=== PATIENT | female | born 1950 | race Caucasian/White ===

== ENCOUNTER 2018-03-01 21:31 | Inpatient (IN) | payer MEDICARE, BC ==
[~2018-03-01] VITALS: Ht 162.6 cm; Wt 56.7 kg
--- NOTE | 2018-03-01 21:40 | NUR ---
Dr. Talbot at bedside for MSE.
--- NOTE | 2018-03-01 22:13 | NUR ---
Called Dominique Pelayo RN for PET eval.
[2018-03-01] MEDS ORDERED: MULT-213 PO (22:14)
[2018-03-01] MEDS ORDERED: LORA0.5T PO (22:14)
[2018-03-01] MEDS ORDERED: ATOR10TA PO (22:14)
[2018-03-01] MEDS ORDERED: OMEG1CAP55 PO (22:14)
[2018-03-01] MEDS ORDERED: cranberry PO (22:14)
[2018-03-01] MEDS ORDERED: PARO20TA7 PO (22:14)
[2018-03-01] MEDS ORDERED: LACT1TAB9 PO (22:14)
[2018-03-01] MEDS ORDERED: OLAN5TAB30 PO (22:14)
[2018-03-01] MEDS ORDERED: PRED20TA PO (22:14)
[2018-03-01] MEDS ORDERED: MELA3TAB PO (22:14)
[2018-03-01] MEDS ORDERED: ASCO500T10 PO (22:14)
[2018-03-01] MEDS ORDERED: CHOL10002 PO (22:14)
[2018-03-01] MEDS ORDERED: QUET50TA PO (22:14)
[2018-03-01] MEDS ORDERED: RIVA20TA PO (22:14)
[2018-03-01] MEDS ORDERED: CYAN10009 PO (22:14)
[2018-03-01] MEDS ORDERED: LISI10TA5 PO (22:14)
[2018-03-01] MEDS ORDERED: LORAZEPAM 1 MG TABLET ONE (22:21)
[2018-03-01] MEDS ORDERED: LORAZEPAM 0.5 MG TABLET PO ONE (22:30)
--- NOTE | 2018-03-01 23:45 | NUR ---
Dominique Pelayo RN arrived to ER, at bedside for psych eval
--- NOTE | 2018-03-02 00:48 | NUR ---
Report given to Oliva WHITTINGTON Medsurg.
[2018-03-02 01:00] VITALS: BP 144/84
[2018-03-02] MEDS: TEMAZEPAM 7.5 MG CAPSULE PO PRN ×2 (01:49→22:17)
[2018-03-02] MEDS ORDERED: MAGNESIUM HYDROXIDE 30 ML LIQUID UDC PO PRN (02:30)
[2018-03-02] MEDS ORDERED: MAG HYDROX/AL HYDROX/SIMETH 30 ML LIQUID UDC PO PRN (02:30)
[2018-03-02 07:30] VITALS: BP 141/74
[2018-03-02] MEDS ORDERED: Medication Not On Formulary EA (Multivitamins W-Minerals (Multivitamin With Minerals) 1 PO SCH (09:00)
[2018-03-02] MEDS ORDERED: Medication Not On Formulary EA (Omega-3 Acid Ethyl Esters (Lovaza) 1 GM) PO SCH (09:00)
[2018-03-02] MEDS ORDERED: OMEGA-3 FATTY ACIDS/FISH OIL CAPSULE PO SCH (09:00)
[2018-03-02] MEDS ORDERED: LACTOBACILLUS REUTERI PO SCH (09:00)
[2018-03-02] MEDS: CHOLECALCIFEROL 1,000 UNIT TABLET PO SCH (10:06)
[2018-03-02] MEDS: ASCORBIC ACID 500 MG TABLET PO SCH ×2 (10:06→16:59)
[2018-03-02] MEDS: LISINOPRIL 10 MG TABLET PO SCH (10:07)
[2018-03-02] MEDS: CYANOCOBALAMIN 1,000 MCG TABLET PO SCH (10:07)
[2018-03-02] MEDS: MULTIVIT, IRON, MIN NO. 8, FA TABLET PO SCH (10:07)
[2018-03-02 15:12] VITALS: BP 147/73
--- NOTE | 2018-03-02 16:25 | NUR ---
Initial Discharge Plan: The patient currently resides in her [facility] [[address] [facility] [address];[[phone]]with her , Kentrell Guallpa [ ]. Per patient, she hopes to return there upon discharge. Motion Designer and other Social Workers will continue to collaborate with interdisciplinary team to ensure safe and proper discharge planning.
[2018-03-02] MEDS: predniSONE 20 MG TABLET PO SCH (17:00)
[2018-03-02] MEDS: RIVAROXABAN 10 MG TABLET PO SCH (17:01)
[2018-03-02 18:32] VITALS: BP 139/71
[2018-03-02] MEDS: ATORVASTATIN 10 MG TABLET PO SCH (20:48)
[2018-03-02] MEDS: risperiDONE 0.5 MG TABLET PO SCH (21:00)
[2018-03-02] MEDS: MIRTAZAPINE 15 MG TABLET PO SCH (21:00)
[2018-03-02 21:51] VITALS: BP 148/79
--- NOTE | 2018-03-02 22:00 | NUR ---
RESTING IN BED, NO ACUTE RESP DISTRESS NOTED., 1;1 SITTER AT BEDSIDE , STILL ON HOLD DUE 03/05/[address] RAMAKRISHNA HEADLEY.
--- NOTE | 2018-03-02 23:20 | NUR ---
Received report from RN. Pt resting in bed, easily arousable. 1:1 sitter at bedside for safety. 72 hour hold noted. No acute distress. Safety precautions in place. Will continue to monitor.
[2018-03-03 07:15] VITALS: BP 147/79
[2018-03-03] MEDS: CHOLECALCIFEROL 1,000 UNIT TABLET PO SCH (09:52)
[2018-03-03] MEDS: ASCORBIC ACID 500 MG TABLET PO SCH ×2 (09:52→17:06)
[2018-03-03] MEDS: CYANOCOBALAMIN 1,000 MCG TABLET PO SCH (09:52)
[2018-03-03] MEDS: MULTIVIT, IRON, MIN NO. 8, FA TABLET PO SCH (09:52)
[2018-03-03] MEDS: predniSONE 20 MG TABLET PO SCH (09:52)
[2018-03-03] MEDS: risperiDONE 0.5 MG TABLET PO SCH ×2 (09:54→20:07)
[2018-03-03 10:24] LABS: BASOPHILS # (AUTO) 0.1 K/uL (0.0-8.0); BASOPHILS % (AUTO) 0.7 % (0.0-2.0); EOSINOPHILS % (AUTO) 0.4 % (0.0-7.0); HEMATOCRIT 41.5 % (31.2-41.9); HEMOGLOBIN 13.9 g/dL (10.9-14.3); LYMPHOCYTES % (AUTO) 18.7 % (20.5-51.5); MEAN CORPUSCULAR HEMOGLOBIN 31.1 uug (24.7-32.8); MEAN CORPUSCULAR HGB CONC 34 g/dL (32.3-35.6); MEAN CORPUSCULAR VOLUME 92.7 fL (75.5-95.3); MONOCYTES # (AUTO) 0.4 K/uL (2.0-10.0); MONOCYTES % (AUTO) 3.5 % (0.0-11.0); NEUTROPHILS # (AUTO) 8.2 K/uL (1.8-8.9); NEUTROPHILS % (AUTO) 76.7 % (38.5-71.5); PLATELET COUNT (AUTO) 229 K/uL (179-408); RED BLOOD CELL COUNT(AUTO) 4.47 MIL/uL (3.63-4.92); WHITE BLOOD COUNT (AUTO) 10.7 K/uL (3.8-11.8)
[2018-03-03 10:38] LABS: CREATININE 1.1 mg/dL (0.6-1.3); POTASSIUM 2.9 mmol/L (3.5-5.1)
[2018-03-03] MEDS: FLUVOXAMINE MALEATE 25 MG TABLET PO SCH ×3 (11:00→17:05)
[2018-03-03] MEDS: LISINOPRIL 10 MG TABLET PO SCH (11:01)
[2018-03-03] MEDS: POTASSIUM CHLORIDE 10 MEQ TAB.PRT.SR PO SCH ×2 (13:03→17:05)
[2018-03-03] MEDS: LORAZEPAM 1 MG TABLET PO PRN ×2 (13:06→17:05)
--- NOTE | 2018-03-03 13:29 | NUR ---
Gave phone report to NELSY Recinos in MHU. Patient transferred on wheel chair, accompanied by NELSY England and . All belongings transferred with patient. Patient in stable condition.
[2018-03-03 16:00] VITALS: BP 150/73
--- NOTE | 2018-03-03 17:04 | NUR ---
Social work note: structural ironworker was sitting in office accompanied by other social human services assistants, Mary Jo, when there were two loud banging sounds coming from hallway of U. Both social workers got up to see what it was just as patient came walking into office and sat down in a chair. Patient stated her name was "Lori De Leon", which later was confirmed to be her [id number]'s name. Patient stated that she made banging noises against MHU entrance door with her plastic cup that she was holding in her hand. Patient appeared to have injured a finger on her right hand as there was a tiny amount of blood. When scratch was acknowledged, patient stated "I'm fine" and that she was "scared" being in MHU as she was just transferred from [facility]. chairman president and chief executive officer showed up to social work office to escort patient out of room. Patient went to doorway of U again and stated "I want to talk to him [referring to security manager". airfield defence guard was able to calm patient down. Patient then approached social human services assistants requesting to call her , Steve [[phone]]. Phone call was unsuccessful so patient left voicemail. Patient remained extremely anxious and continued to pace halls. structural ironworker was able to calm patient and patient sat in chair in the hallway of U. Patient perseverated on fear of "getting a shot". structural ironworker continued to wait with patient until calm.
[2018-03-03] MEDS: RIVAROXABAN 10 MG TABLET PO SCH (17:06)
[2018-03-03 20:00] VITALS: BP 132/65
[2018-03-03] MEDS: MIRTAZAPINE 15 MG TABLET PO SCH (20:07)
[2018-03-03] MEDS: ATORVASTATIN 10 MG TABLET PO SCH (20:07)
[2018-03-04 07:30] VITALS: BP 131/81
[2018-03-04 07:45] LABS: CREATININE 0.9 mg/dL (0.6-1.3); POTASSIUM 4.3 mmol/L (3.5-5.1)
[2018-03-04] MEDS: MULTIVIT, IRON, MIN NO. 8, FA TABLET PO SCH (08:34)
[2018-03-04] MEDS: FLUVOXAMINE MALEATE 25 MG TABLET PO SCH ×3 (08:34→17:34)
[2018-03-04] MEDS: ASCORBIC ACID 500 MG TABLET PO SCH ×2 (08:34→17:38)
[2018-03-04] MEDS: risperiDONE 0.5 MG TABLET PO SCH ×2 (08:34→20:06)
[2018-03-04] MEDS: predniSONE 20 MG TABLET PO SCH (08:34)
[2018-03-04] MEDS: CYANOCOBALAMIN 1,000 MCG TABLET PO SCH (08:34)
[2018-03-04] MEDS: CHOLECALCIFEROL 1,000 UNIT TABLET PO SCH (08:34)
[2018-03-04] MEDS: LISINOPRIL 10 MG TABLET PO SCH (08:35)
--- NOTE | 2018-03-04 13:20 | NUR ---
GROUP NOTE: Patients were asked to discuss their thoughts on what they would change in their lives in order to invoke empowerment and explore coping strategies for things they cannot change. Subjective: "I would want to be with my grandchildren all the time." Objective: Patient initially refused to attend the group today. Patient arrived to group 5 minutes late. Patient appeared to sit and listen to other group members in the group and required prompting to participate. Patient left the group x3 to use the restroom, take a shower, or change her shirt. Assessment: Patient appeared somewhat restless while the group was taking place. Patient did not seem to sit in the [place] for very long before stating she needed to use the restroom, take a shower, or change her clothes. Patient did require some prompting to participate in the group, but did respond appropriately to questions asked. Patient was unable to discuss any coping strategies that she has. Plan: SW will continue to encourage group attendance as scheduled. SW will continue to provide encouragement and support in helping patient explore options of coping skills.
[2018-03-04 16:00] VITALS: BP 98/63
[2018-03-04] MEDS: RIVAROXABAN 10 MG TABLET PO SCH (17:38)
[2018-03-04] MEDS: MIRTAZAPINE 15 MG TABLET PO SCH (20:06)
[2018-03-04] MEDS: ATORVASTATIN 10 MG TABLET PO SCH (20:06)
[2018-03-04 20:15] VITALS: BP 130/70
[2018-03-04] MEDS: TEMAZEPAM 7.5 MG CAPSULE PO PRN (23:47)
[2018-03-05] MEDS: LORAZEPAM 1 MG TABLET PO PRN (06:20)
[2018-03-05 07:30] VITALS: BP 133/70
[2018-03-05] MEDS: ASCORBIC ACID 500 MG TABLET PO SCH ×2 (08:31→17:23)
[2018-03-05] MEDS: LISINOPRIL 10 MG TABLET PO SCH (08:32)
[2018-03-05] MEDS: CYANOCOBALAMIN 1,000 MCG TABLET PO SCH (08:32)
[2018-03-05] MEDS: risperiDONE 0.5 MG TABLET PO SCH ×2 (08:34→20:30)
[2018-03-05] MEDS: MULTIVIT, IRON, MIN NO. 8, FA TABLET PO SCH (08:34)
[2018-03-05] MEDS: predniSONE 20 MG TABLET PO SCH (08:34)
[2018-03-05] MEDS: FLUVOXAMINE MALEATE 25 MG TABLET PO SCH ×3 (08:34→17:23)
[2018-03-05] MEDS: CHOLECALCIFEROL 1,000 UNIT TABLET PO SCH (08:34)
[2018-03-05 16:12] VITALS: BP 118/65
[2018-03-05] MEDS: RIVAROXABAN 10 MG TABLET PO SCH (17:25)
[2018-03-05] MEDS: FLUVOXAMINE MALEATE 50 MG TABLET PO SCH (20:30)
[2018-03-05] MEDS: MIRTAZAPINE 15 MG TABLET PO SCH (20:30)
[2018-03-05] MEDS: ATORVASTATIN 10 MG TABLET PO SCH (20:36)
[2018-03-05] MEDS: ACETAMINOPHEN 325 MG TABLET PO PRN (20:38)
[2018-03-05 21:03] VITALS: BP 116/58
--- NOTE | 2018-03-06 06:52 | NUR ---
Received Pt lying in bed awake, A+Ox3. Presents with blunted and constricted affect and poor eye contact. Pt states she has been increasingly "depressed over the last year, mostly just trying to get through cancer." Denies SI and denies AH/VH, but appears internally preoccupied and paranoid. Verbally contracts for safety, encouraged to seek staff if feeling self-injurious or suicidal, Pt agreed. VS stable, denies pain, in no acute physical distress.
[2018-03-06 07:30] VITALS: BP 134/60
[2018-03-06] MEDS: FLUVOXAMINE MALEATE 25 MG TABLET PO SCH ×2 (08:30→16:39)
[2018-03-06] MEDS: predniSONE 20 MG TABLET PO SCH (08:30)
[2018-03-06] MEDS: LISINOPRIL 10 MG TABLET PO SCH (08:32)
[2018-03-06] MEDS: risperiDONE 0.5 MG TABLET PO SCH ×2 (08:32→21:00)
[2018-03-06] MEDS: MULTIVIT, IRON, MIN NO. 8, FA TABLET PO SCH (08:33)
[2018-03-06] MEDS: CYANOCOBALAMIN 1,000 MCG TABLET PO SCH (08:33)
[2018-03-06] MEDS: ASCORBIC ACID 500 MG TABLET PO SCH ×2 (08:33→16:39)
[2018-03-06] MEDS: CHOLECALCIFEROL 1,000 UNIT TABLET PO SCH (08:34)
[2018-03-06] MEDS ORDERED: BISACODYL 10 MG SUPP.RECT RC PRN (10:45)
[2018-03-06] MEDS ORDERED: MIRALAX 17 GM POWD.PACK PO PRN (10:45)
[2018-03-06 15:00] VITALS: BP 129/73
--- NOTE | 2018-03-06 15:16 | NUR ---
Firearms Report: feed in worker completed and submitted a [employer] firearms report for a 5250 GD certification.
[2018-03-06] MEDS: RIVAROXABAN 10 MG TABLET PO SCH (16:40)
--- NOTE | 2018-03-06 17:25 | NUR ---
received patient awake on bed, Alert Oriented x 3, patient isolates her self and did not rajwinder the group activity , constricted affect with poor eye contact, patient compliant with care and medication, encourage to join group activity, patient denies of pain and other discomfort
[2018-03-06 20:00] VITALS: BP 161/78
[2018-03-06] MEDS: FLUVOXAMINE MALEATE 50 MG TABLET PO SCH (21:00)
[2018-03-06] MEDS: ATORVASTATIN 10 MG TABLET PO SCH (21:00)
[2018-03-06] MEDS: MIRTAZAPINE 15 MG TABLET PO SCH (21:00)
--- NOTE | 2018-03-06 21:23 | NUR ---
Refusing PM medications. Offered x 3, explained risks and benefits. Continued to refuse. Safety maintained. Will continue to monitor.
[2018-03-06 21:31] VITALS: BP 151/72
--- NOTE | 2018-03-06 21:48 | NUR ---
Requested to take PM meds but upon entering, patient refused. Offered x 3, explained risks and benefits but pt continued to refuse. Safety maintained. Will continue to monitor.
--- NOTE | 2018-03-07 06:47 | NUR ---
Received pt at beginning of shift, AAO x 3-4 with guarded behavior, isolative and flat affect. No complaints of pain or discomfort throughout shift. Patient noted with accusatory, paranoid, restless, agitated behavior. Refused all PM meds, despite explanation of risks and benefits. Offered x 3. Verbalizing that she "is not sick" and that "she is faking it all". Restless behavior all night, frequently waking her roommate by shaking the bed and shaking the patient. Manipulative behavior noted as well. Frequent attempts at redirection made with minimal success. In denial about condition with poor insight. Continues paranoid and accusatory behavior towards nursing staff. Safety maintained. Fall precautions implemented. Will endorse accordingly to next shift.
[2018-03-07] MEDS: LORAZEPAM 1 MG TABLET PO PRN (07:39)
[2018-03-07] MEDS: ACETAMINOPHEN 325 MG TABLET PO PRN (07:40)
[2018-03-07 08:12] VITALS: BP 168/82
[2018-03-07] MEDS: risperiDONE 0.5 MG TABLET PO SCH ×2 (08:18→21:48)
[2018-03-07] MEDS: FLUVOXAMINE MALEATE 25 MG TABLET PO SCH ×2 (08:18→17:07)
[2018-03-07] MEDS: CYANOCOBALAMIN 1,000 MCG TABLET PO SCH (08:19)
[2018-03-07] MEDS: predniSONE 20 MG TABLET PO SCH (08:19)
[2018-03-07] MEDS: ASCORBIC ACID 500 MG TABLET PO SCH ×2 (08:19→17:08)
[2018-03-07] MEDS: MULTIVIT, IRON, MIN NO. 8, FA TABLET PO SCH (08:19)
[2018-03-07] MEDS: CHOLECALCIFEROL 1,000 UNIT TABLET PO SCH (08:19)
[2018-03-07] MEDS: LISINOPRIL 10 MG TABLET PO SCH ×2 (08:20→17:10)
[2018-03-07 16:16] VITALS: BP 112/64
[2018-03-07] MEDS: LORAZEPAM 0.5 MG TABLET PO PRN (17:07)
[2018-03-07] MEDS: RIVAROXABAN 10 MG TABLET PO SCH (17:17)
[2018-03-07 20:00] VITALS: BP 104/51
[2018-03-07] MEDS: FLUVOXAMINE MALEATE 50 MG TABLET PO SCH (21:49)
[2018-03-07] MEDS: ATORVASTATIN 10 MG TABLET PO SCH (21:49)
[2018-03-07] MEDS: MIRTAZAPINE 15 MG TABLET PO SCH (21:49)
[2018-03-07] MEDS: TEMAZEPAM 7.5 MG CAPSULE PO PRN (21:49)
--- NOTE | 2018-03-08 00:53 | NUR ---
Lying in bed given c/o insomnia given prn Restoril compliant with hs Meds. resting comfortably at this time.
--- NOTE | 2018-03-08 06:51 | NUR ---
Eyes closed rep even and unlab remains resting comfortably. Slept 8.0 hr s during the shift.
[2018-03-08 07:30] VITALS: BP 108/49
[2018-03-08] MEDS: LISINOPRIL 10 MG TABLET PO SCH ×3 (08:21→16:46)
[2018-03-08] MEDS: risperiDONE 0.5 MG TABLET PO SCH ×2 (08:21→20:20)
[2018-03-08] MEDS: ASCORBIC ACID 500 MG TABLET PO SCH ×2 (08:21→16:45)
[2018-03-08] MEDS: predniSONE 20 MG TABLET PO SCH (08:22)
[2018-03-08] MEDS: CYANOCOBALAMIN 1,000 MCG TABLET PO SCH (08:22)
[2018-03-08] MEDS: CHOLECALCIFEROL 1,000 UNIT TABLET PO SCH (08:22)
[2018-03-08] MEDS: MULTIVIT, IRON, MIN NO. 8, FA TABLET PO SCH (08:22)
[2018-03-08] MEDS: FLUVOXAMINE MALEATE 25 MG TABLET PO SCH ×2 (08:22→16:47)
[2018-03-08 16:00] VITALS: BP 139/79
[2018-03-08] MEDS: RIVAROXABAN 10 MG TABLET PO SCH (16:45)
[2018-03-08 20:05] VITALS: BP 130/67
[2018-03-08] MEDS: ATORVASTATIN 10 MG TABLET PO SCH (20:19)
[2018-03-08] MEDS: MIRTAZAPINE 15 MG TABLET PO SCH (20:19)
[2018-03-08] MEDS: FLUVOXAMINE MALEATE 50 MG TABLET PO SCH (20:19)
[2018-03-09] MEDS: LORAZEPAM 0.5 MG TABLET PO PRN ×2 (07:52→16:54)
[2018-03-09] MEDS: ASCORBIC ACID 500 MG TABLET PO SCH ×2 (08:11→16:54)
[2018-03-09] MEDS: risperiDONE 0.5 MG TABLET PO SCH (08:11)
[2018-03-09] MEDS: FLUVOXAMINE MALEATE 25 MG TABLET PO SCH ×2 (08:11→16:54)
[2018-03-09] MEDS: CYANOCOBALAMIN 1,000 MCG TABLET PO SCH (08:11)
[2018-03-09] MEDS: MULTIVIT, IRON, MIN NO. 8, FA TABLET PO SCH (08:11)
[2018-03-09] MEDS: CHOLECALCIFEROL 1,000 UNIT TABLET PO SCH (08:12)
[2018-03-09] MEDS: predniSONE 20 MG TABLET PO SCH (08:12)
[2018-03-09] MEDS: LISINOPRIL 10 MG TABLET PO SCH (08:12)
[2018-03-09] MEDS: LISINOPRIL 20 MG TABLET PO SCH ×2 (08:39→16:59)
--- NOTE | 2018-03-09 08:40 | NUR ---
GPS: Nursing Notes: Lisinopril PO: Lisinopril 20mg PO already given this AM, informed pharmacist whom changed the formulary, continue to monitor patient, continue with treatment plan.
[2018-03-09] MEDS: RIVAROXABAN 10 MG TABLET PO SCH (17:00)
[2018-03-09 17:12] VITALS: BP 115/62
[2018-03-09] MEDS: ATORVASTATIN 10 MG TABLET PO SCH (20:04)
[2018-03-09] MEDS: FLUVOXAMINE MALEATE 50 MG TABLET PO SCH (20:05)
[2018-03-09] MEDS: MIRTAZAPINE 15 MG TABLET PO SCH (20:05)
[2018-03-09] MEDS: risperiDONE 1 MG TABLET PO SCH (20:05)
[2018-03-09 20:22] VITALS: BP 121/69
[2018-03-10 07:30] VITALS: BP 117/54
[2018-03-10] MEDS: MULTIVIT, IRON, MIN NO. 8, FA TABLET PO SCH (08:44)
[2018-03-10] MEDS: FLUVOXAMINE MALEATE 50 MG TABLET PO SCH ×2 (08:44→20:50)
[2018-03-10] MEDS: CYANOCOBALAMIN 1,000 MCG TABLET PO SCH (08:44)
[2018-03-10] MEDS: LISINOPRIL 20 MG TABLET PO SCH ×2 (08:45→17:36)
[2018-03-10] MEDS: CHOLECALCIFEROL 1,000 UNIT TABLET PO SCH (08:45)
[2018-03-10] MEDS: ASCORBIC ACID 500 MG TABLET PO SCH ×2 (08:46→17:35)
[2018-03-10] MEDS: predniSONE 20 MG TABLET PO SCH (08:46)
[2018-03-10] MEDS: risperiDONE 1 MG TABLET PO SCH ×2 (08:46→20:50)
[2018-03-10] MEDS: FLUVOXAMINE MALEATE 25 MG TABLET PO SCH (12:54)
[2018-03-10 16:00] VITALS: BP 136/68
[2018-03-10] MEDS: LORAZEPAM 0.5 MG TABLET PO PRN (17:35)
[2018-03-10] MEDS: RIVAROXABAN 10 MG TABLET PO SCH (17:36)
[2018-03-10 20:15] VITALS: BP 107/62
[2018-03-10] MEDS: MIRTAZAPINE 15 MG TABLET PO SCH (20:50)
[2018-03-10] MEDS: ATORVASTATIN 10 MG TABLET PO SCH (20:50)
[2018-03-11 07:30] VITALS: BP 90/50
[2018-03-11 07:31] LABS: BASOPHILS % (AUTO) 0.5 % (0.0-2.0); EOSINOPHILS % (AUTO) 0.4 % (0.0-7.0); HEMATOCRIT 35.8 % (31.2-41.9); HEMOGLOBIN 12.4 g/dL (10.9-14.3); LYMPHOCYTES # (AUTO) 2.4 K/uL (20.0-40.0); LYMPHOCYTES % (AUTO) 29.1 % (20.5-51.5); MEAN CORPUSCULAR HEMOGLOBIN 31.4 uug (24.7-32.8); MEAN CORPUSCULAR HGB CONC 35 g/dL (32.3-35.6); MEAN CORPUSCULAR VOLUME 90.7 fL (75.5-95.3); MONOCYTES # (AUTO) 0.6 K/uL (2.0-10.0); MONOCYTES % (AUTO) 7.5 % (0.0-11.0); NEUTROPHILS # (AUTO) 5.1 K/uL (1.8-8.9); NEUTROPHILS % (AUTO) 62.5 % (38.5-71.5); PLATELET COUNT (AUTO) 183 K/uL (179-408); RED BLOOD CELL COUNT(AUTO) 3.94 MIL/uL (3.63-4.92); WHITE BLOOD COUNT (AUTO) 8.1 K/uL (3.8-11.8)
[2018-03-11] MEDS: LISINOPRIL 20 MG TABLET PO SCH ×2 (09:00→16:59)
[2018-03-11] MEDS: FLUVOXAMINE MALEATE 50 MG TABLET PO SCH ×2 (09:34→21:00)
[2018-03-11] MEDS: predniSONE 20 MG TABLET PO SCH (09:34)
[2018-03-11] MEDS: CYANOCOBALAMIN 1,000 MCG TABLET PO SCH (09:34)
[2018-03-11] MEDS: ASCORBIC ACID 500 MG TABLET PO SCH ×2 (09:34→17:00)
[2018-03-11] MEDS: MULTIVIT, IRON, MIN NO. 8, FA TABLET PO SCH (09:34)
[2018-03-11] MEDS: CHOLECALCIFEROL 1,000 UNIT TABLET PO SCH (09:35)
[2018-03-11] MEDS: risperiDONE 1 MG TABLET PO SCH ×2 (09:51→21:00)
--- NOTE | 2018-03-11 12:36 | NUR ---
Activity group note: Patients were asked to answer the question of "What is one thing you would change about yourself and why? Subjective: "No, I don't think so" Objective: Patient was laying in bed when social professionals approached bedside to ask for group participation. Patient appeared with flat affect and made no eye contact with social professionals. Assessment: Patient needs encouragement to participate in group and with peers. Plan: Encourage group attendance as scheduled. bridge worker continue to provide opportunities for group participation and peer interaction.
[2018-03-11] MEDS: FLUVOXAMINE MALEATE 25 MG TABLET PO SCH (12:47)
[2018-03-11 16:00] VITALS: BP 106/63
[2018-03-11] MEDS: RIVAROXABAN 10 MG TABLET PO SCH (17:01)
[2018-03-11 20:11] VITALS: BP 126/66
[2018-03-11] MEDS: ATORVASTATIN 10 MG TABLET PO SCH (21:00)
[2018-03-11] MEDS: MIRTAZAPINE 15 MG TABLET PO SCH (21:00)
[2018-03-11] MEDS: CLONAZEPAM 0.5 MG TABLET PO SCH (21:00)
[2018-03-12 07:30] VITALS: BP 139/70
[2018-03-12] MEDS: CHOLECALCIFEROL 1,000 UNIT TABLET PO SCH (09:31)
[2018-03-12] MEDS: predniSONE 20 MG TABLET PO SCH (09:31)
[2018-03-12] MEDS: CLONAZEPAM 0.5 MG TABLET PO SCH ×2 (09:31→21:15)
[2018-03-12] MEDS: MULTIVIT, IRON, MIN NO. 8, FA TABLET PO SCH (09:32)
[2018-03-12] MEDS: LISINOPRIL 20 MG TABLET PO SCH ×2 (09:32→17:00)
[2018-03-12] MEDS: FLUVOXAMINE MALEATE 50 MG TABLET PO SCH ×2 (09:32→21:16)
[2018-03-12] MEDS: ASCORBIC ACID 500 MG TABLET PO SCH ×2 (09:32→17:13)
[2018-03-12] MEDS: risperiDONE 1 MG TABLET PO SCH ×2 (09:32→21:14)
[2018-03-12] MEDS: CYANOCOBALAMIN 1,000 MCG TABLET PO SCH (09:32)
--- NOTE | 2018-03-12 12:05 | NUR ---
Gps/Oil Process Stillman- Patient wet, not with urine but with water from w/c WINE CONSULTANT observed patient pouring water on her w/ face towel. When asked patient if she is ok, claimed " i am fine, just dont bother me, instructed the need to change her shirt and alison shin, claimed she does not need any help right now, offered prn ativan, refused. in , visiting was informed of patient's behavior.
[2018-03-12 16:00] VITALS: BP 96/47
[2018-03-12] MEDS: RIVAROXABAN 10 MG TABLET PO SCH (17:19)
--- NOTE | 2018-03-12 17:44 | NUR ---
Gps/Obstetrical Anesthesiologist- Compliant with routine pm. meds. in the room visiting. Had a nice nap this pm. Less anxious, interacting fairly well with staff.
[2018-03-12 20:00] VITALS: BP 91/53
[2018-03-12] MEDS: MIRTAZAPINE 15 MG TABLET PO SCH (21:16)
[2018-03-12] MEDS: ATORVASTATIN 10 MG TABLET PO SCH (21:16)
[2018-03-13 07:30] VITALS: BP 148/67
[2018-03-13] MEDS: ASCORBIC ACID 500 MG TABLET PO SCH ×2 (08:52→17:16)
[2018-03-13] MEDS: predniSONE 20 MG TABLET PO SCH (08:52)
[2018-03-13] MEDS: MULTIVIT, IRON, MIN NO. 8, FA TABLET PO SCH (08:53)
[2018-03-13] MEDS: CHOLECALCIFEROL 1,000 UNIT TABLET PO SCH (08:53)
[2018-03-13] MEDS: CYANOCOBALAMIN 1,000 MCG TABLET PO SCH (08:53)
[2018-03-13] MEDS: FLUVOXAMINE MALEATE 50 MG TABLET PO SCH (08:53)
[2018-03-13] MEDS: risperiDONE 1 MG TABLET PO SCH (08:53)
[2018-03-13] MEDS: LISINOPRIL 20 MG TABLET PO SCH ×2 (08:53→16:13)
[2018-03-13] MEDS: CLONAZEPAM 0.5 MG TABLET PO SCH ×3 (08:54→21:59)
--- NOTE | 2018-03-13 14:49 | NUR ---
Gps/Emissions Testing Technician- Came to the Nurses station verbalized that she's done faking, when asked what does she meant by faking, she claimed" I feel sorry for my family, i did this to everyone, they are miserable, dont let my comes to see me anymore", she also verbalized feelings of being scared, when asked why she's scared, she claimed " you will broadcast to the world and it wont be secret anymore." Offered prn ativan, appeared to be anxious, claimed ativan wont help her , encouraged to attend her group therapy, stay with the group, pt. refused. Continue to monitor behavior, safety reviewed emphasized, monitored needs.
--- NOTE | 2018-03-13 15:22 | NUR ---
Discharge Planning: DANE Rondon spoke with pt. and her , Kentrell [[phone]] on 03/09/18 regarding what supportive services they would be interested in. Per pt. and they would like to be referred to a psychiatrist near their home because they previously had difficulty finding mental health services in their area. DANE Rondon on 03/13/18 put together a list of Psychiatrists in the [facility] for post discharge patient care.
--- NOTE | 2018-03-13 15:42 | NUR ---
Discharge Planning: painting trades worker has conversation with patient about outpatient resources that could be beneficial to patient upon treatment. Patient appeared to be anxious as she was scribbling in notebook and would not make eye contact during conversation. Patient made bizarre statements that she was "never going to go home" and that "nothing will help this [referring to herself]". Patient fabio stated that she "destroyed" her "loving family". painting trades worker attempted to offer supportive counseling, but patient refused to participate. painting trades worker offered to come back at a later time with resources that patient could look at and choose from. Patient agreed. Per conversation with patient, it appears patient may benefit from an IOP [Intensive Outpatient Program]. painting trades worker researched IOPs in the [facility] and found [facility] [[address] [place] [address], [address], [place] [address]; [phone]]. painting trades worker called and left a voicemail requesting a return phone call. painting trades worker awaiting call back.
[2018-03-13 16:48] VITALS: BP 101/57
[2018-03-13] MEDS: RIVAROXABAN 10 MG TABLET PO SCH (17:17)
--- NOTE | 2018-03-13 17:36 | NUR ---
Gps/Mobile Manager- Patient refusing routine pm meds., at the bedside, encouraged patient to take her routine meds. , appeared to be anxious, guarded, refusing to talk.
[2018-03-13 20:37] VITALS: BP 131/68
[2018-03-13] MEDS: risperiDONE 1 MG/ML UDC PO SCH ×2 (21:00→21:59)
[2018-03-13] MEDS: ATORVASTATIN 10 MG TABLET PO SCH ×2 (21:00→21:59)
[2018-03-13] MEDS: MIRTAZAPINE 15 MG TABLET PO SCH ×2 (21:00→21:58)
--- NOTE | 2018-03-13 22:41 | NUR ---
RECEIVED PATIENT IN BED.APPEARS WITHDRAWN,ISOLATIVE ,AND GUARDED.DOES NOT INTERACT EVEN WHEN ENGAGED.REFUSED ALL MEDS EVEN AFTER 3 ATTEMPTS.ONLY SAID 'I WANT TO GO'.WILL CONTINUE WITH MONITORING.
[2018-03-14] MEDS: TEMAZEPAM 7.5 MG CAPSULE PO PRN (01:05)
--- NOTE | 2018-03-14 06:58 | NUR ---
SLEPT APPROX.7;30HRS.ALLOWED STAFF TO GIVE HER A SHOWER.
[2018-03-14 07:30] VITALS: BP 126/62
[2018-03-14] MEDS: CYANOCOBALAMIN 1,000 MCG TABLET PO SCH (09:02)
[2018-03-14] MEDS: MULTIVIT, IRON, MIN NO. 8, FA TABLET PO SCH (09:02)
[2018-03-14] MEDS: CHOLECALCIFEROL 1,000 UNIT TABLET PO SCH (09:02)
[2018-03-14] MEDS: ASCORBIC ACID 500 MG TABLET PO SCH ×2 (09:02→17:58)
[2018-03-14] MEDS: predniSONE 20 MG TABLET PO SCH (09:02)
[2018-03-14] MEDS: FLUVOXAMINE MALEATE 50 MG TABLET PO SCH ×3 (09:02→17:59)
[2018-03-14] MEDS: LISINOPRIL 20 MG TABLET PO SCH ×2 (09:03→17:00)
[2018-03-14] MEDS: risperiDONE 1 MG/ML UDC PO SCH ×2 (09:05→21:18)
[2018-03-14] MEDS: CLONAZEPAM 0.5 MG TABLET PO SCH ×3 (09:05→21:16)
[2018-03-14 16:00] VITALS: BP 91/51
[2018-03-14] MEDS: RIVAROXABAN 10 MG TABLET PO SCH (18:01)
--- NOTE | 2018-03-14 18:35 | NUR ---
PT WAS LYING IN BED DECIDED TO GET UP AND TURN ON THE LIGHT IN THE ROOM. ON HER WAY BACK TO BED SHE SAYS SHE BECAME DIZZY AND LOST HER BALANCE. WENT DOWN ON HER BUT ON TOP OF HER SHOES IN HER ROOM. WITNESSED BY SITTER OF PT IN BED SAME ROOM BED A. STAFF INTO ROOM TO HELP HER BACK TO BED SHE SAYS SHE HAS MINIMAL PAIN ON HER BUTTOCK 4/10. SHE IS ABLE TO WALK AND STAND NO VISIBLE BRUISING OR INJURY NOTED. NOTIFIED INCIDENT REPORT WRITTEN. NOW IN BE BED ALARM ON INSTURCT HER TO CALL FOR ASSIST WHEN GETTING OUT OF BED. FALL REASSESSMENT DONE
[2018-03-14 20:00] VITALS: BP 94/55
[2018-03-14] MEDS: ATORVASTATIN 10 MG TABLET PO SCH (21:16)
[2018-03-14] MEDS: MIRTAZAPINE 15 MG TABLET PO SCH (21:16)
--- NOTE | 2018-03-14 21:30 | NUR ---
XRAY OF THE PELVIS DONE WITH NORMAL RESULT
--- NOTE | 2018-03-15 06:40 | NUR ---
PATIENT SLEEPING INTERMITTENTLY,. NO C/O PAIN OR DISCOMFORT DURING THE SHIFT. SLEPT FOR 9.30 HRS.
[2018-03-15 07:30] VITALS: BP 111/62
[2018-03-15] MEDS: ASCORBIC ACID 500 MG TABLET PO SCH ×2 (08:35→17:38)
[2018-03-15] MEDS: LISINOPRIL 20 MG TABLET PO SCH ×2 (08:35→17:00)
[2018-03-15] MEDS: CYANOCOBALAMIN 1,000 MCG TABLET PO SCH (08:35)
[2018-03-15] MEDS: CHOLECALCIFEROL 1,000 UNIT TABLET PO SCH (08:36)
[2018-03-15] MEDS: predniSONE 20 MG TABLET PO SCH (08:36)
[2018-03-15] MEDS: FLUVOXAMINE MALEATE 50 MG TABLET PO SCH ×3 (08:36→17:38)
[2018-03-15] MEDS: MULTIVIT, IRON, MIN NO. 8, FA TABLET PO SCH (08:36)
[2018-03-15] MEDS: risperiDONE 1 MG/ML UDC PO SCH ×2 (08:40→21:39)
[2018-03-15] MEDS: CLONAZEPAM 0.5 MG TABLET PO SCH ×3 (08:40→21:03)
[2018-03-15 08:56] VITALS: BP 114/64
[2018-03-15 08:57] VITALS: BP 122/62
[2018-03-15 08:58] VITALS: BP 99/57
--- NOTE | 2018-03-15 09:15 | NUR ---
Gps/Flaring Machine Operator- Hesitant to take her routine am meds. reviewed with patient, claimed she does not want to take anymore meds. needed prompting and encouragement. Appeared to be anxious, encouraged verbalizations of her feelings. B/P 114/64 HR 89 02 sat 96%- lying, 122/62 HR 95 sitting, 99/57 HR 108 standing .Safety reviewed and emphasized. Denies dizziness
[2018-03-15 15:23] VITALS: BP 109/63
[2018-03-15] MEDS: RIVAROXABAN 10 MG TABLET PO SCH (17:43)
[2018-03-15 20:00] VITALS: BP 143/76
--- NOTE | 2018-03-15 20:00 | NUR ---
RECEIVED PATIENT IN BED, ALERT, ORIENTED, NO COMPLAIN OF PAIN, COOPERATIVE WITH CARE AND MEDICATION AT THIS TIME. PATIENT PREFER TO STAY IN BED AT THIS TIME. NO BEHAVIORAL PROBLEM NOTED AT THIS TIME. WILL CONT TO MONITOR.
[2018-03-15] MEDS: ATORVASTATIN 10 MG TABLET PO SCH (21:02)
[2018-03-15] MEDS: MIRTAZAPINE 15 MG TABLET PO SCH (21:02)
--- NOTE | 2018-03-16 06:26 | NUR ---
patient asleep but easily arousable, patient slept for 7.30 hrs, patient needs encouragement before took medications, no complain of pain at this time. cont to monitor.
[2018-03-16 07:30] VITALS: BP 149/74
[2018-03-16] MEDS: CLONAZEPAM 0.5 MG TABLET PO SCH ×3 (09:25→20:35)
[2018-03-16] MEDS: predniSONE 20 MG TABLET PO SCH (09:26)
[2018-03-16] MEDS: ASCORBIC ACID 500 MG TABLET PO SCH ×2 (09:26→17:09)
[2018-03-16] MEDS: CYANOCOBALAMIN 1,000 MCG TABLET PO SCH (09:26)
[2018-03-16] MEDS: MULTIVIT, IRON, MIN NO. 8, FA TABLET PO SCH (09:26)
[2018-03-16] MEDS: FLUVOXAMINE MALEATE 50 MG TABLET PO SCH ×3 (09:26→17:09)
[2018-03-16] MEDS: LISINOPRIL 20 MG TABLET PO SCH ×2 (09:32→17:13)
[2018-03-16] MEDS: risperiDONE 1 MG/ML UDC PO SCH (09:33)
[2018-03-16] MEDS: CHOLECALCIFEROL 1,000 UNIT TABLET PO SCH (09:33)
--- NOTE | 2018-03-16 11:17 | NUR ---
Discharge Planning: distillery worker general followed up with [facility] [place] [[address], [address], [place] [address]; [phone]] regarding IOP. Per staff at facility, Adán, Medicare is not accepted at [facility]. Adán suggested called [facility] [[phone]] as Medicare is accepted at that location. distillery worker general to follow-up.
--- NOTE | 2018-03-16 11:20 | NUR ---
Discharge Planning: DANE Rondon completed a home health referral on 03/16/2018 to [facility]. [ ]. DANE Rondon spoke with wedding coordinator, Joyce Denton [ ] to ensure [facility] could provide the following in- home services for patient: social work consult, nurse evaluation and medication management. Joyce informed DANE Rondon that the patient is accepted. DANE Rondon will follow up and confirm the pt.s discharge date to [facility]. so that they may complete an assessment with pt. at her home when discharged.
--- NOTE | 2018-03-16 13:25 | NUR ---
Discharge planning: DANE Rondon informed patient and her Kentrell, about outpatient therapy that may benefit pt. with her symptoms of depression and adjusting to living with this new diagnosis. Family expressed interest in services and felt that the pt. could benefit from meeting with therapist on a weekly basis. DANE Rondon contacted [facility] IOP Coordinator, Jodie Ward and left a voicemail detailing an interest in referring a pt. for services once discharged. Jodie is the [facility] Intensive Outpatient coordinator of evaluation at [facility] [[address] [address] [phone]] which is the closest IOP to pt.s home. DANE Rondon is awaiting a call back from Jodie in order to gather eligibility guidelines and program information, and to accordingly initiate the referral process. Addendum: 03/16/18 at 1634 by AMANDA VELA Additional Information: community outreach worker received return phone call from Latisha, dental practice manager [[phone]]. Per Latisha, the agency does accept Medicare and would be happy to provide services to patient. Latisha states that the intake process consists of either an in-person informational session or phone call to patient to determine if the program is an appropriate fit. If program is an appropriate fit, then patient would attend initial assessment and then begin the program which lasts 3 months and is 4 days/week from 5:00pm-8:00pm. community outreach worker to follow-up with family and explain what IOP consists of.
[2018-03-16 15:31] VITALS: BP 115/64
--- NOTE | 2018-03-16 16:25 | NUR ---
Discharge Planning: grommet worker arrived to patient bedside to discuss IOP in [place] and other outpatient resources. Patient was resting at the time of clinical social worker arrival and stated "I do not want to talk right now". grommet worker honored patient request and left room. grommet worker then called patient , Kentrell [[phone]], to discuss IOP and other outpatient resources. Per Kentrell, he would like to discuss resources in person and requested to come meet clinical social worker tomorrow at noon. grommet worker agreed and will meet with Kentrell tomorrow at noon.
[2018-03-16] MEDS: RIVAROXABAN 10 MG TABLET PO SCH (17:09)
[2018-03-16 20:00] VITALS: BP 106/57
[2018-03-16] MEDS: MIRTAZAPINE 15 MG TABLET PO SCH (20:33)
[2018-03-16] MEDS: ATORVASTATIN 10 MG TABLET PO SCH (20:35)
[2018-03-16] MEDS: risperiDONE 1 MG TABLET PO SCH (21:00)
[2018-03-16] MEDS ORDERED: risperiDONE 0.5 MG TABLET PO SCH (21:00)
[2018-03-17 07:30] VITALS: BP 134/69
[2018-03-17] MEDS: FLUVOXAMINE MALEATE 50 MG TABLET PO SCH ×3 (08:07→17:00)
[2018-03-17] MEDS: CLONAZEPAM 0.5 MG TABLET PO SCH ×2 (08:07→17:00)
[2018-03-17] MEDS: predniSONE 20 MG TABLET PO SCH (08:07)
[2018-03-17] MEDS: CHOLECALCIFEROL 1,000 UNIT TABLET PO SCH (08:08)
[2018-03-17] MEDS: CYANOCOBALAMIN 1,000 MCG TABLET PO SCH (08:08)
[2018-03-17] MEDS: ASCORBIC ACID 500 MG TABLET PO SCH ×2 (08:08→18:07)
[2018-03-17] MEDS: risperiDONE 1 MG TABLET PO SCH (08:08)
[2018-03-17] MEDS: MULTIVIT, IRON, MIN NO. 8, FA TABLET PO SCH (08:12)
[2018-03-17] MEDS: LISINOPRIL 20 MG TABLET PO SCH ×2 (08:13→17:00)
--- NOTE | 2018-03-17 10:00 | NUR ---
PATIENT'S ROOMMATE CAME TO TELL NURSE PATIENT IS ON THE FLOOR, FOUND PATIENT SITTING ON THE FLOOR OF RESTROOM. ASSISTED PT BACK TO BED PATIENT ABLE TO MOVE ALL EXTREMITIES .NOTED PT,S LEFT ARM AND RIGHT ELBOW WITH SKIN TEAR .MD NOTIFIED TREATMENT TO BOTH ARM DONE,X-RAY TO [facility].HIP ORDERED.VS TAKEN FOLLOW ; B/P 96/46,HR 90 T 98.2F R18 O2 SAT 98% IN ROOM AIR.SPOKE WITH PT,S GEORGINA MADE AWARE OF INCIDENT.WILL CONTINUE CLOSE MONITORING.
--- NOTE | 2018-03-17 10:03 | NUR ---
GPS: NURSING:ADDITIONAL NOTES TO PATIENT FALL: PATIENT'S VITAL SIGNS: BP:94/48 HR: 61. T: 98.9 02 SAT 99%, CHARGE NURSE INFORMED, CONTINUE TO MONITOR PATIENT.
--- NOTE | 2018-03-17 11:00 | NUR ---
GPS: NURSING: S/P FALL VITAL SIGNS: PATIENT'S VITAL SIGNS: BP: 104 /48 HR: 65 , R: 18 TEMP 98.0 O2 SAT 100, PATIENT RESPONDING TO VERBAL COMMANDS, XRAY 'S OF HIPS WERE NEGATIVE, CHARGE NURSE INFORMED, WILL CONTINUE TO MONITOR PATIENT, CONTINUE TREATMENT PLAN.
--- NOTE | 2018-03-17 14:28 | NUR ---
Discharge planning: kennel worker met with patient , Kentrell [[phone]], on MHU. kennel worker facilitated conversation about outpatient resources. Per Kentrell, he is feeling overwhelmed about caring for his and he even became tearful during meeting speaking. Kentrell is open to suggestions for resources. kennel worker provided Kentrell with a list of Medicare accepting psychiatrists, clinical psychologists, clinical social workers, hematologists, and neurologists in the [facility] vicinity. kennel worker also provided Kentrell with information about the [facility] [employer] [facility] [employer] [[employer]; ; ] that will be following patient home once she is discharged. kennel worker then facilitated conversation about an intensive outpatient program located in [place] called [facility] located at [facility] [[address] [address]]. The program is 4 days/week from 5:00-8:00pm for 3 months. kennel worker and Kentrell discussed the time commitment and pros and cons of patient attending the IOP, but ultimately, Kentrell decided that he would be willing to take patient to the program as it would be beneficial. Lastly, social sciences instructor provided Kentrell with a list of [employer]IN[employer] [national alliance on mental illness] support groups that he could attend located in the [place] area. All resources given to Kentrell. kennel worker then called and left a voicemail with Latisha, intelligence manager [[phone]], at [facility] regarding intake/admission to program. kennel worker awaiting call back.
[2018-03-17 15:52] VITALS: BP 102/53
[2018-03-17] MEDS ORDERED: CLONAZEPAM 1 MG TABLET PO SCH ×2 (17:00)
[2018-03-17] MEDS: RIVAROXABAN 10 MG TABLET PO SCH (18:10)
[2018-03-17 18:29] LABS: BASOPHILS % (AUTO) 0.2 % (0.0-2.0); HEMATOCRIT 34.7 % (31.2-41.9); HEMOGLOBIN 11.8 g/dL (10.9-14.3); LYMPHOCYTES # (AUTO) 0.4 K/uL (20.0-40.0); LYMPHOCYTES % (AUTO) 3.9 % (20.5-51.5); MEAN CORPUSCULAR HEMOGLOBIN 31.7 uug (24.7-32.8); MEAN CORPUSCULAR HGB CONC 34 g/dL (32.3-35.6); MEAN CORPUSCULAR VOLUME 93.1 fL (75.5-95.3); MONOCYTES # (AUTO) 0.5 K/uL (2.0-10.0); MONOCYTES % (AUTO) 4.8 % (0.0-11.0); NEUTROPHILS # (AUTO) 9.7 K/uL (1.8-8.9); NEUTROPHILS % (AUTO) 91.1 % (38.5-71.5); PLATELET COUNT (AUTO) 175 K/uL (179-408); RED BLOOD CELL COUNT(AUTO) 3.72 MIL/uL (3.63-4.92); WHITE BLOOD COUNT (AUTO) 10.7 K/uL (3.8-11.8)
[2018-03-17] MEDS: NEOMY/BACITRAC/POLYMI OINT 28.35 GM TUBE TOP SCH (18:38)
[2018-03-17 18:41] LABS: MAGNESIUM 2.1 mg/dL (1.8-2.4); PHOSPHOROUS 2.5 mg/dL (2.5-4.9); POTASSIUM 4.3 mmol/L (3.5-5.1)
[2018-03-17 20:43] VITALS: BP 100/53
[2018-03-17] MEDS: risperiDONE 2 MG TABLET PO SCH (20:46)
[2018-03-17] MEDS: ATORVASTATIN 10 MG TABLET PO SCH (20:46)
[2018-03-17] MEDS: MIRTAZAPINE 15 MG TABLET PO SCH (20:46)
[2018-03-17] MEDS ORDERED: risperiDONE 1 MG TABLET PO SCH (21:00)
[2018-03-18 07:30] VITALS: BP 134/67
[2018-03-18] MEDS ORDERED: risperiDONE 1 MG TABLET PO SCH (09:00)
[2018-03-18] MEDS: CLONAZEPAM 0.5 MG TABLET PO SCH ×2 (09:18→16:44)
[2018-03-18] MEDS: risperiDONE 2 MG TABLET PO SCH ×2 (09:18→21:10)
[2018-03-18] MEDS: LISINOPRIL 20 MG TABLET PO SCH ×2 (09:19→16:42)
[2018-03-18] MEDS: predniSONE 20 MG TABLET PO SCH (09:19)
[2018-03-18] MEDS: CYANOCOBALAMIN 1,000 MCG TABLET PO SCH (09:19)
[2018-03-18] MEDS: CHOLECALCIFEROL 1,000 UNIT TABLET PO SCH (09:19)
[2018-03-18] MEDS: FLUVOXAMINE MALEATE 50 MG TABLET PO SCH ×3 (09:20→16:42)
[2018-03-18] MEDS: ASCORBIC ACID 500 MG TABLET PO SCH ×2 (09:20→16:41)
[2018-03-18] MEDS: NEOMY/BACITRAC/POLYMI OINT 28.35 GM TUBE TOP SCH ×2 (09:22→16:59)
[2018-03-18] MEDS: MULTIVIT, IRON, MIN NO. 8, FA TABLET PO SCH (09:23)
--- NOTE | 2018-03-18 13:47 | NUR ---
Discharge Planning: ironworker apprentice shop received return phone call from Latisha, general store manager [[phone]], at [facility] regarding intake process for patient. Per Latisha, sr. social media & mobile manager should call back when discharge is scheduled to arrange for an intake appointment. Additionally, sr. social media & mobile manager should send clinical information upon discharge. ironworker apprentice shop will follow-up with Latisha when a discharge is scheduled.
[2018-03-18 16:00] VITALS: BP 119/68
--- NOTE | 2018-03-18 16:28 | NUR ---
GROUP NOTE: Patients were asked to attend group to draw pictures of their favorite animals and describe how that animal may represent who they are. S: "Not today." O: Patient did not attend group A: Patient presented sleeping at the time group began. Patient was able to be woken up, but declined invitation to group. P: SW will continue to encourage group participation as scheduled.
[2018-03-18] MEDS: RIVAROXABAN 10 MG TABLET PO SCH (16:59)
[2018-03-18 19:06] LABS: *BILIRUBIN,URIN NEGATIVE (NEGATIVE); *BLOOD, URINE NEGATIVE (NEGATIVE); *CLARITY,URINE CLEAR (CLEAR); *COLOR,URINE YELLOW (YELLOW); *KETONES,URINE NEGATIVE (NEGATIVE); *UROBILINOGEN,URINE 0.2 E.U./dl (NORMAL); LEUKOCYTE ESTERASE ,URINE NEGATIVE (NEGATIVE); NITRITE, URINE NEGATIVE (NEGATIVE); UGLUCOSE NEGATIVE (NEGATIVE)
[2018-03-18 19:34] LABS: WBC,URINE 0-3 /HPF (0-3)
[2018-03-18 19:35] LABS: BACTERIA,URINE FEW /HPF (NONE SEEN); SQUAMOUS EPITHELIAL CELL,UR FEW /HPF (NONE SEEN); YEAST,URINE RARE /HPF (NONE SEEN)
[2018-03-18 21:00] VITALS: BP 111/61
[2018-03-18] MEDS: ATORVASTATIN 10 MG TABLET PO SCH (21:10)
[2018-03-18] MEDS: MIRTAZAPINE 15 MG TABLET PO SCH (21:11)
[2018-03-19 07:30] VITALS: BP 108/58
[2018-03-19] MEDS: CLONAZEPAM 0.5 MG TABLET PO SCH ×2 (08:11→16:33)
[2018-03-19] MEDS: FLUVOXAMINE MALEATE 50 MG TABLET PO SCH ×3 (08:11→16:34)
[2018-03-19] MEDS: ASCORBIC ACID 500 MG TABLET PO SCH ×2 (08:13→16:31)
[2018-03-19] MEDS: CHOLECALCIFEROL 1,000 UNIT TABLET PO SCH (08:15)
[2018-03-19] MEDS: LISINOPRIL 20 MG TABLET PO SCH (08:15)
[2018-03-19] MEDS: risperiDONE 2 MG TABLET PO SCH ×2 (08:16→20:40)
[2018-03-19] MEDS: CYANOCOBALAMIN 1,000 MCG TABLET PO SCH (08:17)
[2018-03-19] MEDS: MULTIVIT, IRON, MIN NO. 8, FA TABLET PO SCH (08:19)
[2018-03-19] MEDS: NEOMY/BACITRAC/POLYMI OINT 28.35 GM TUBE TOP SCH ×2 (08:21→16:35)
[2018-03-19] MEDS ORDERED: predniSONE 20 MG TABLET PO SCH (09:00)
[2018-03-19] MEDS: predniSONE 10 MG TABLET PO SCH (09:11)
[2018-03-19 16:00] VITALS: BP 107/48
[2018-03-19] MEDS: LISINOPRIL 10 MG TABLET PO SCH (16:29)
[2018-03-19] MEDS: RIVAROXABAN 10 MG TABLET PO SCH (16:32)
[2018-03-19] MEDS ORDERED: LISINOPRIL 20 MG TABLET PO SCH (17:00)
[2018-03-19] MEDS: ATORVASTATIN 10 MG TABLET PO SCH (20:40)
[2018-03-19] MEDS: MIRTAZAPINE 15 MG TABLET PO SCH (20:40)
[2018-03-19 20:43] VITALS: BP 115/64
[2018-03-20] MEDS: TEMAZEPAM 7.5 MG CAPSULE PO PRN (01:00)
[2018-03-20] MEDS: ACETAMINOPHEN 325 MG TABLET PO PRN (01:00)
[2018-03-20 07:30] VITALS: BP 136/72
--- NOTE | 2018-03-20 08:41 | NUR ---
DISCHARGE NOTE: Patient will be discharged to her home [[address] [place] [id number]; ] with her , Kentrell [[phone]]. Transportation will be provided by Kentrell at 10:00am. Patient is alert and oriented x3, is able to plan for self-care, and denies any SI/HI. Patient is aware and agreeable with discharge plans. Patient will follow-up with [facility] on March 26 at 10:00am for new patient intake appointment. Appointment was arranged and confirmed by it project lead, Latisha [[phone]]. Continuing care packet has been faxed to facility. Patient was provided additional mental health referrals in [facility] including [facility] [[phone]], [facility] [[phone]], and National Suicide Prevention Lifeline [ ]. Patient currently does not have a psychiatrist, so patient was provided with a list of Medicare accepting psychiatrists in the [facility]. Patient has also been provided with lists of Medicare accepting psychotherapists, hematologists, and neurologists in the [facility]. Patient will also have a home health assessment by [facility] [[address] [place] [address]; ] on March 21 at 10:00am. Assessment was arranged by Joyce Denton, facility patient services coordinator. Patient currently follows-up outpatient with her PCP, Dr. Tabitha Quinones [phone: [phone]; fax: [phone]] and her rubber block layer, Dr. Nazario Rapp [phone: [phone]]. Continuing care packets have been faxed.
[2018-03-20] MEDS: NEOMY/BACITRAC/POLYMI OINT 28.35 GM TUBE TOP SCH (09:21)
[2018-03-20 09:22] VITALS: BP 136/72
[2018-03-20] MEDS: FLUVOXAMINE MALEATE 50 MG TABLET PO SCH (09:22)
[2018-03-20] MEDS: LISINOPRIL 10 MG TABLET PO SCH (09:22)
[2018-03-20] MEDS: CYANOCOBALAMIN 1,000 MCG TABLET PO SCH (09:22)
[2018-03-20] MEDS: predniSONE 10 MG TABLET PO SCH (09:22)
[2018-03-20] MEDS: ASCORBIC ACID 500 MG TABLET PO SCH (09:22)
[2018-03-20] MEDS: CHOLECALCIFEROL 1,000 UNIT TABLET PO SCH (09:22)
[2018-03-20] MEDS: CLONAZEPAM 0.5 MG TABLET PO SCH (09:22)
[2018-03-20] MEDS: risperiDONE 2 MG TABLET PO SCH (09:22)
[2018-03-20] MEDS: MULTIVIT, IRON, MIN NO. 8, FA TABLET PO SCH (09:22)
--- NOTE | 2018-03-20 10:30 | NUR ---
PT LEFT UNIT ON W/C ACCOMPANIED BY QUARTER INSPECTOR AND TO PRIVATE VEHICLE. DENIES PAIN OR DISCOMFORT. DENIES SUICIDAL AND HOMICIDAL IDEATIONS. V/S STABLE. LEFT WITH ALL NOTED PAPERWORK AND BELONGINGS. IN NO ACUTE DISTRESS. PRESCRIPTIONS CALLED IN TO PHARMACY OF CHOICE: [place] [address]. .
== END 2018-03-20 11:46 | disposition home health service (06) | DRG 885 ==
LOC: ER 21:35 → GPSOV 03-02 00:53 → GPS 03-03 13:36
PROVIDERS: ADMIT Psychiatry & Neurology Psychiatry; ATTEND Family Medicine
DX: F32.3 Major depressive disorder, single episode, severe with psychotic features (principal); F41.0 Panic disorder [episodic paroxysmal anxiety]; Z80.3 Family history of malignant neoplasm of breast; Z85.3 Personal history of malignant neoplasm of breast; Z92.3 Personal history of irradiation; Z86.718 Personal history of other venous thrombosis and embolism; Z86.711 Personal history of pulmonary embolism; Z79.01 Long term (current) use of anticoagulants; Z79.899 Other long term (current) drug therapy; Z87.891 Personal history of nicotine dependence; G90.8 Other disorders of autonomic nervous system; I95.2 Hypotension due to drugs; T50.905A Adverse effect of unspecified drugs, medicaments and biological substances, initial encounter; Y92.239 Unspecified place in hospital as the place of occurrence of the external cause; E78.5 Hyperlipidemia, unspecified; I10 Essential (primary) hypertension
CPT/HCPCS: 36415; 72170; 73521; 83735; 84100; 85025; 93005; 93307; 93880; 97112; 97116; A4663; J7512